=== PATIENT | female | born 1930 | race Caucasian/White ===

== ENCOUNTER 2017-02-12 09:43 | Inpatient (IN) | payer OTHER ==
[2017-02-12 12:19] VITALS: BMI 32.1
--- NOTE | 2017-02-12 14:16 | HP ---
CIWA Score - CIWA Score Nausea/Vomitin-Int. Nausea w/Dry Heave Muscle Tremors: 3 Anxiety: 4-Mod. Anxious/Guarded Agitation: 3 Paroxysmal Sweats: 2 Orientation: 0-Oriented Tacttile Disturbances: 3-Moderate Itch/Numb/Burn Auditory Disturbances: 0-None Visual Disturbances: 0-None Headache: 4-Moderately Severe CIWA-Ar Total Score: 23 Admission ROS BHS - HPI Chief Complaint: "I need to Detox." Pt. is here to Detox from Xanax. Allergies/Adverse Reactions: Allergies Allergy/AdvReac Type Severity Reaction Status Date / Time No Known Allergies Allergy Verified 02/12/17 12:56 History of Present Illness: Pt. is a 86 YO female here to detox from Xanax. This is pt.'s first Detox admission. Exam Limitations: No Limitations - Ebola screening Have you traveled outside of the country in the last 21 days: No Have you had contact with anyone from an Ebola affected area: No Have you been sick,other than usual withdrawal symptoms: No Do you have a fever: No - Review of Systems Constitutional: Chills, Diaphoresis, Loss of Appetite, Malaise, Night Sweats, Changes in sleep, Unintentional Wgt. Loss (Lost 5-10 lbs. over last 1 month.) EENT: reports: Blurred Vision, Other (Dry Mouth.) Respiratory: reports: No Symptoms reported Cardiac: reports: No Symptoms Reported GI: reports: Abdominal cramping : reports: No Symptoms Reported Musculoskeletal: reports: Joint Pain, Joint Stiffness Integumentary: reports: No Symptoms Reported Neuro: reports: Headache, Tremors Endocrine: reports: No Symptoms Reported Hematology: reports: No Symptoms Reported Psychiatric: reports: Judgement Intact, Mood/Affect Appropiate, Orientated x3, Agitated, Anxious, Depressed (Anxiety.) Other Systems: Reviewed and Negative Patient History - Patient Medical History Hx Anemia: No Hx Asthma: No Hx Chronic Obstructive Pulmonary Disease (COPD): No Hx Cancer: No Hx Cardiac Disorders: No Hx Congestive Heart Failure: No Hx Hypertension: Yes (Takes med.) Hx Hypercholesterolemia: Yes (No meds.) Hx Pacemaker: No HX Cerebrovascular Accident: No Hx Seizures: No Hx Dementia: No Hx Diabetes: No Hx Gastrointestinal Disorders: No Hx Liver Disease: No Hx Genitourinary Disorders: No Hx Sexually Transmitted Disorders: No Hx Renal Disease (ESRD): No (Possibly, Needs to Follow-up with Outside Medical Provider.) Hx Thyroid Disease: No Hx Human Immunodeficiency Virus (HIV): No Hx Hepatitis C: No Hx Depression: Yes (On meds.) Hx Suicide Attempt: No (PATIENT DENIES CURRENT SI / HI.) Hx Bipolar Disorder: No Hx Schizophrenia: No - Patient Surgical History Past Surgical History: No Hx Neurologic Surgery: No Hx Cataract Extraction: No Hx Cardiac Surgery: No Hx Lung Surgery: No Hx Breast Surgery: Yes (bIlateral breast sx at age 48) Hx Breast Biopsy: No Hx Abdominal Surgery: No Hx Appendectomy: No Hx Cholecystectomy: No Hx Genitourinary Surgery: No Hx Section: No Hx Orthopedic Surgery: No Anesthesia Reaction: No - PPD History Previous Implant?: Yes Documented Results: Negative w/o proof Implanted On Prior R Admission?: No PPD to be Administered?: Yes - Reproductive History Patient is a Female of Child Bearing Age (11 -55 yrs old): No (86 YO.) Patient : No - Smoking Cessation Smoking history: Never smoked Have you smoked in the past 12 months: No Cigars Per Day: 0 Hx Chewing Tobacco Use: No Initiated information on smoking cessation: No - Substance & Tx. History Hx Alcohol Use: No Hx Substance Use: Yes Substance Use Type: Tranquilizers Hx Substance Use Treatment: No - Substances Abused Xanax (prescribed) Route: Oral Frequency: Daily Amount used: 2 mg. po bid Age of first use: 76 Date of Last Use: 02/11/17 Ambien (prescribed) Route: Oral Frequency: Daily Amount used: 10 mg po HS Age of first use: 85 Date of Last Use: 02/11/17 Family Disease History - Family Disease History Family Disease History: CA: Daughter (Breast.) Admission Physical Exam BHS - Vital Signs Vital Signs: Vital Signs - 24 hr 02/12/17 12:16 Temperature 96 F L Pulse Rate 76 Respiratory 18 Rate Blood Pressure 185/95 - Physical General Appearance: Yes: Moderate Distress, Tremorous, Irritable, Anxious HEENTM: Yes: Hearing grossly Normal, Normocephalic, Normal Voice, NUZHAT, Pharynx Normal Respiratory: Yes: Chest Non-Tender, Lungs Clear, No Respiratory Distress Neck: Yes: No masses,lesions,Nodules, Supple, Trachea in good position Breast: Yes: Breast Exam Deferred Cardiology: Yes: Regular Rhythm, Regular Rate, S1, S2 Abdominal: Yes: Normal Bowel Sounds, Non Tender, Flat, Soft Genitourinary: Yes: Within Normal Limits Back: Yes: Decreased Range of Motion Musculoskeletal: Yes: Gait Steady, Joint Stiffness, Muscle Pain Extremities: Yes: Tremors Neurological: Yes: Fully Oriented, Alert, Normal Mood/Affect, Normal Response Integumentary: Yes: Normal Color, Warm Lymphatic: Yes: Within Normal Limits - Diagnostic (1) Sedative, hypnotic or anxiolytic dependence with withdrawal, uncomplicated Current Visit: Yes Status: Acute (2) Anxiety Current Visit: Yes Status: Chronic Cleared for Admission [facility] - Detox or Rehab [facility] Level of Care: Medically Managed Detox Regimen/Protocol: Valium [facility] Breath Alcohol Content Breath Alcohol Content: 0 Urine Pregancy Test - Result Urine Test Results: Negative- NO Line Present Urine Drug Screen - Results Drug Screen Negative: No Urine Drug Screen Results: BZO-Benzodiazepines
[2017-02-12] MEDS ORDERED: IBUPROFEN 400 MG TABLET (FP) PO PRN (14:48)
[2017-02-12] MEDS ORDERED: diphenhydrAMINE HCL 50 MG CAPSULE PO PRN (14:48)
[2017-02-12] MEDS ORDERED: guaiFENesin/D-METHORPHAN HB 10 ML UNIT-DOSE CUPS PO PRN (14:48)
[2017-02-12] MEDS ORDERED: hydrOXYzine PAMOATE 50 MG CAPSULE (FP) PO PRN (14:48)
[2017-02-12] MEDS ORDERED: MAGNESIUM HYDROX 2400MG/30ML ORAL SUSPENSION 30 ML CUP PO PRN (14:48)
[2017-02-12] MEDS ORDERED: MAG HYDROX/AL HYDROX/SIMETH 30 ML UNIT-DOSE CUP PO PRN (14:48)
[2017-02-12] MEDS ORDERED: MAGNESIUM CITRATE 300 ML BOTTLE PO PRN (14:48)
[2017-02-12] MEDS ORDERED: ACETAMINOPHEN 325 MG TABLET (FP) PO PRN (14:48)
[2017-02-12] MEDS ORDERED: P-EPHED 60MG/TRIPROLIDI 2.5MG TABLET PO PRN (14:48)
[2017-02-12] MEDS ORDERED: LOPERAMIDE HCL 2 MG CAPSULE PO PRN (14:48)
[2017-02-12] MEDS ORDERED: MENTHOL/PHENOL 1 EACH UD MM PRN (14:48)
[2017-02-12] MEDS ORDERED: diazePAM 5 MG TABLET PO ONE (15:24)
[2017-02-12] MEDS: diazePAM 5 MG TABLET PO PRN (18:51)
[2017-02-12] MEDS: diazePAM 5 MG TABLET PO SCH (22:10)
[2017-02-12] MEDS: THIAMINE HCL 100 MG TABLET (FP) PO SCH (22:11)
[2017-02-13] MEDS: diazePAM 5 MG TABLET PO SCH ×3 (06:22→22:47)
[2017-02-13] MEDS: PRENATAL VITAMINS W/ FOLIC ACID TABLET (FP) PO SCH (10:10)
[2017-02-13] MEDS: diazePAM 5 MG TABLET PO PRN (10:10)
[2017-02-13] MEDS: LOSARTAN POTASSIUM 50 MG TABLET (FP) PO SCH (10:11)
[2017-02-13 10:31] LABS: URINE APPEARANCE CLEAR; URINE BILIRUBIN NEGATIVE (NEGATIVE); URINE BLOOD NEGATIVE (NEGATIVE); URINE COLOR LTYELLOW; URINE GLUCOSE (UA) NEGATIVE (NEGATIVE); URINE KETONE NEGATIVE (NEGATIVE); URINE NITRITE NEGATIVE (NEGATIVE); URINE PROTEIN NEGATIVE (NEGATIVE); URINE UROBILINOGEN NEGATIVE E.U./dl (0.2-1.0)
[2017-02-13 10:32] LABS: URINE LEUK ESTERASE 3+ (NEGATIVE)
[2017-02-13 10:35] LABS: MCH 31.2 pg (25.7-33.7); MEAN CELL VOLUME 91.8 fl (80-96); MEAN PLT VOLUME 8.6 fl (7.5-11.1); PLATELET COUNT 311 K/MM3 (134-434); RDW 14.3 % (11.6-15.6)
[2017-02-13 10:47] LABS: URINE BACTERIA FEW /hpf (NONE SEEN); URINE RBC 1 /hpf (0-3); URINE WBC 10 /hpf (3-5)
[2017-02-13 11:07] LABS: ALBUMIN 4.2 g/dl (3.4-5.0); BILIRUBIN,TOTAL 0.7 mg/dL (0.2-1.0); CALCIUM 9.7 mg/dL (8.5-10.1); COCKROFT - GAULT 40.596; CREATININE 1.3 mg/dL (0.55-1.02)
--- NOTE | 2017-02-13 12:39 | PN ---
S CIWA - CIWA Score Nausea/Vomitin Muscle Tremors: 3 Anxiety: 3 Agitation: 3 Paroxysmal Sweats: 1-Minimal Palms Moist Orientation: 0-Oriented Tacttile Disturbances: 1-Very Mild Itch/Numbness Auditory Disturbances: 1-Very Mild Visual Disturbances: 1-Very Mild Sensitivity Headache: 2-Mild CIWA-Ar Total Score: 18 S Progress Note (SOAP) Subjective: ALERT,IRRITABLE,ANXIOUS,INTERRUPTED SLEEP,HEADACHE Objective: 02/13/17 12:37 Vital Signs Temperature 98.1 F 02/13/17 10:21 Pulse Rate 103 H 02/13/17 10:21 Respiratory Rate 18 02/13/17 10:21 Blood Pressure 150/92 02/13/17 10:21 O2 Sat by Pulse Oximetry (%) EKG NSR,NORMAL ECG Laboratory Last Values WBC 10.0 K/mm3 (4.0-10.0) 02/13/17 06:30 RBC 4.47 M/mm3 (3.60-5.2) 02/13/17 06:30 Hgb 14.0 GM/dL (10.7-15.3) 02/13/17 06:30 Hct 41.0 % (32.4-45.2) 02/13/17 06:30 MCV 91.8 fl (80-96) 02/13/17 06:30 MCHC 34.0 g/dl (32.0-36.0) 02/13/17 06:30 RDW 14.3 % (11.6-15.6) 02/13/17 06:30 Plt Count 311 K/MM3 (134-434) 02/13/17 06:30 MPV 8.6 fl (7.5-11.1) 02/13/17 06:30 Sodium 137 mmol/L (136-145) 02/13/17 06:30 Potassium 4.1 mmol/L (3.5-5.1) 02/13/17 06:30 Chloride 102 mmol/L (98-107) 02/13/17 06:30 Carbon Dioxide 23 mmol/L (21-32) 02/13/17 06:30 Anion Gap 12 (8-16) 02/13/17 06:30 BUN 17 mg/dL (7-18) 02/13/17 06:30 Creatinine 1.3 mg/dL (0.55-1.02) H 02/13/17 06:30 Creat Clearance w eGFR 39.02 (>60) 02/13/17 06:30 Random Glucose 104 mg/dL (74-106) 02/13/17 06:30 Calcium 9.7 mg/dL (8.5-10.1) 02/13/17 06:30 Total Bilirubin 0.7 mg/dL (0.2-1.0) 02/13/17 06:30 AST 26 U/L (15-37) 02/13/17 06:30 ALT 23 U/L (12-78) 02/13/17 06:30 Alkaline Phosphatase 111 U/L (45-117) 02/13/17 06:30 Total Protein 8.0 g/dl (6.4-8.2) 02/13/17 06:30 Albumin 4.2 g/dl (3.4-5.0) 02/13/17 06:30 Urine Color Ltyellow 02/13/17 09:00 Urine Appearance Clear 02/13/17 09:00 Urine pH 7.0 (5.0-8.0) 02/13/17 09:00 Ur Specific [place] 1.015 (1.001-1.035) 02/13/17 09:00 Urine Protein Negative (NEGATIVE) 02/13/17 09:00 Urine Glucose (UA) Negative (NEGATIVE) 02/13/17 09:00 Urine Ketones Negative (NEGATIVE) 02/13/17 09:00 Urine Blood Negative (NEGATIVE) 02/13/17 09:00 Urine Nitrite Negative (NEGATIVE) 02/13/17 09:00 Urine Bilirubin Negative (NEGATIVE) 02/13/17 09:00 Urine Urobilinogen Negative E.U./dl (0.2-1.0) 02/13/17 09:00 Ur Leukocyte Esterase 3+ (NEGATIVE) H 02/13/17 09:00 Urine RBC 1 /hpf (0-3) 02/13/17 09:00 Urine WBC 10 /hpf (3-5) 02/13/17 09:00 Ur Epithelial Cells Rare /hpf (FEW) 02/13/17 09:00 Urine Bacteria Few /hpf (NONE SEEN) 02/13/17 09:00 Assessment: 02/13/17 12:38 WITHDRAWAL SYMPTOM Plan: CONTINUE DETOX,REPEAT UA
--- NOTE | 2017-02-13 16:03 | CONSULT ---
[facility] Psychiatric Consult - Data Date of interview: 02/13/17 Admission source: [facility] Identifying data: Patient is approached for psychiatric interview.She refused.Staff is made aware.
[2017-02-13] MEDS: THIAMINE HCL 100 MG TABLET (FP) PO SCH (22:47)
[2017-02-14] MEDS: diazePAM 5 MG TABLET PO PRN ×4 (06:12→21:12)
[2017-02-14] MEDS: diazePAM 5 MG TABLET PO SCH ×2 (11:13→23:13)
[2017-02-14] MEDS: PRENATAL VITAMINS W/ FOLIC ACID TABLET (FP) PO SCH (11:13)
[2017-02-14] MEDS: LOSARTAN POTASSIUM 50 MG TABLET (FP) PO SCH (11:14)
--- NOTE | 2017-02-14 14:58 | PN ---
S CIWA - CIWA Score Nausea/Vomitin Muscle Tremors: 3 Anxiety: 3 Agitation: 2 Paroxysmal Sweats: 1-Minimal Palms Moist Orientation: 0-Oriented Tacttile Disturbances: 1-Very Mild Itch/Numbness Auditory Disturbances: 1-Very Mild Visual Disturbances: 1-Very Mild Sensitivity Headache: 2-Mild CIWA-Ar Total Score: 17 BHS Progress Note (SOAP) Subjective: ALERT,IRRITABLE,ANXIOUS,INTERRUPTED SLEEP,PAIN IN THE BODY Objective: 02/14/17 14:56 Vital Signs Temperature 98.1 F 02/14/17 14:21 Pulse Rate 81 02/14/17 14:21 Respiratory Rate 18 02/14/17 14:21 Blood Pressure 162/92 02/14/17 14:21 O2 Sat by Pulse Oximetry (%) Laboratory Last Values WBC 10.0 K/mm3 (4.0-10.0) 02/13/17 06:30 RBC 4.47 M/mm3 (3.60-5.2) 02/13/17 06:30 Hgb 14.0 GM/dL (10.7-15.3) 02/13/17 06:30 Hct 41.0 % (32.4-45.2) 02/13/17 06:30 MCV 91.8 fl (80-96) 02/13/17 06:30 MCHC 34.0 g/dl (32.0-36.0) 02/13/17 06:30 RDW 14.3 % (11.6-15.6) 02/13/17 06:30 Plt Count 311 K/MM3 (134-434) 02/13/17 06:30 MPV 8.6 fl (7.5-11.1) 02/13/17 06:30 Sodium 137 mmol/L (136-145) 02/13/17 06:30 Potassium 4.1 mmol/L (3.5-5.1) 02/13/17 06:30 Chloride 102 mmol/L (98-107) 02/13/17 06:30 Carbon Dioxide 23 mmol/L (21-32) 02/13/17 06:30 Anion Gap 12 (8-16) 02/13/17 06:30 BUN 17 mg/dL (7-18) 02/13/17 06:30 Creatinine 1.3 mg/dL (0.55-1.02) H 04/15/17 06:30 Creat Clearance w eGFR 39.02 (>60) 02/13/17 06:30 Random Glucose 104 mg/dL (74-106) 02/13/17 06:30 Calcium 9.7 mg/dL (8.5-10.1) 02/13/17 06:30 Total Bilirubin 0.7 mg/dL (0.2-1.0) 02/13/17 06:30 AST 26 U/L (15-37) 02/13/17 06:30 ALT 23 U/L (12-78) 02/13/17 06:30 Alkaline Phosphatase 111 U/L (45-117) 02/13/17 06:30 Total Protein 8.0 g/dl (6.4-8.2) 02/13/17 06:30 Albumin 4.2 g/dl (3.4-5.0) 02/13/17 06:30 Urine Color Ltyellow 02/13/17 09:00 Urine Appearance Clear 02/13/17 09:00 Urine pH 7.0 (5.0-8.0) 02/13/17 09:00 Ur Specific [place] 1.015 (1.001-1.035) 02/13/17 09:00 Urine Protein Negative (NEGATIVE) 02/13/17 09:00 Urine Glucose (UA) Negative (NEGATIVE) 02/13/17 09:00 Urine Ketones Negative (NEGATIVE) 02/13/17 09:00 Urine Blood Negative (NEGATIVE) 02/13/17 09:00 Urine Nitrite Negative (NEGATIVE) 02/13/17 09:00 Urine Bilirubin Negative (NEGATIVE) 02/13/17 09:00 Urine Urobilinogen Negative E.U./dl (0.2-1.0) 02/13/17 09:00 Ur Leukocyte Esterase 3+ (NEGATIVE) H 02/13/17 09:00 Urine RBC 1 /hpf (0-3) 02/13/17 09:00 Urine WBC 10 /hpf (3-5) 02/13/17 09:00 Ur Epithelial Cells Rare /hpf (FEW) 02/13/17 09:00 Urine Bacteria Few /hpf (NONE SEEN) 02/13/17 09:00 RPR Titer Nonreactive (NONREACTIVE) 02/13/17 06:30 Assessment: 02/14/17 14:57 WITHDRAWAL SYMPTOM Plan: CONTINUE DETOX
[2017-02-14 17:43] LABS: URINE APPEARANCE CLEAR; URINE BILIRUBIN NEGATIVE (NEGATIVE); URINE BLOOD NEGATIVE (NEGATIVE); URINE COLOR LTYELLOW; URINE GLUCOSE (UA) NEGATIVE (NEGATIVE); URINE KETONE NEGATIVE (NEGATIVE); URINE LEUK ESTERASE TRACE (NEGATIVE); URINE NITRITE NEGATIVE (NEGATIVE); URINE PROTEIN NEGATIVE (NEGATIVE); URINE UROBILINOGEN NEGATIVE E.U./dl (0.2-1.0)
[2017-02-14 17:47] LABS: URINE RBC <1 /hpf (0-3); URINE WBC 3 /hpf (3-5)
[2017-02-14] MEDS: hydrOXYzine PAMOATE 50 MG CAPSULE (FP) PO SCH (23:13)
[2017-02-14] MEDS: THIAMINE HCL 100 MG TABLET (FP) PO SCH (23:13)
[2017-02-15] MEDS: diazePAM 5 MG TABLET PO PRN ×3 (02:57→12:37)
--- NOTE | 2017-02-15 08:48 | EKG ---
Test Reason : Blood Pressure : / mmHG Vent. Rate : 076 BPM Atrial Rate : 076 BPM P-R Int : 142 ms QRS Dur : 098 ms QT Int : 406 ms P-R-T Axes : 072 013 051 degrees QTc Int : 456 ms NORMAL SINUS RHYTHM NORMAL ECG NO PREVIOUS ECGS AVAILABLE Confirmed by ALHAJI GARAY MD ([id number]) on 02/15/2017 8:47:47 AM Referred By: Confirmed By:ALHAJI GARAY MD
[2017-02-15] MEDS: diazePAM 5 MG TABLET PO SCH ×2 (10:53→22:49)
[2017-02-15] MEDS: LOSARTAN POTASSIUM 50 MG TABLET (FP) PO SCH (10:53)
[2017-02-15] MEDS: PRENATAL VITAMINS W/ FOLIC ACID TABLET (FP) PO SCH (10:53)
--- NOTE | 2017-02-15 11:37 | PN ---
BHS Progress Note (SOAP) Subjective: interrupted sleep, sweats , nausea, diarrhea, not eatting , unable to tolerate ensure Objective: 02/15/17 11:34 Vital Signs Temperature 98.2 F 02/15/17 06:00 Pulse Rate 72 02/15/17 06:00 Respiratory Rate 18 02/15/17 06:00 Blood Pressure 131/71 02/15/17 06:00 O2 Sat by Pulse Oximetry (%) Vital Signs Temperature 98.2 F 02/15/17 06:00 Pulse Rate 72 02/15/17 06:00 Respiratory Rate 18 02/15/17 06:00 Blood Pressure 131/71 02/15/17 06:00 O2 Sat by Pulse Oximetry (%) Laboratory Tests 02/13/17 02/13/17 02/13/17 06:30 06:30 06:30 WBC 10.0 RBC 4.47 Hgb 14.0 Hct 41.0 MCV 91.8 MCHC 34.0 RDW 14.3 Plt Count 311 MPV 8.6 Sodium 137 Potassium 4.1 Chloride 102 Carbon Dioxide 23 Anion Gap 12 BUN 17 Creatinine 1.3 H Creat Clearance w eGFR 39.02 Random Glucose 104 Calcium 9.7 Total Bilirubin 0.7 AST 26 ALT 23 Alkaline Phosphatase 111 Total Protein 8.0 Albumin 4.2 Urine Color Urine Appearance Urine pH Ur Specific [place] Urine Protein Urine Glucose (UA) Urine Ketones Urine Blood Urine Nitrite Urine Bilirubin Urine Urobilinogen Ur Leukocyte Esterase Urine RBC Urine WBC Ur Epithelial Cells Urine Bacteria RPR Titer Nonreactive 02/13/17 02/14/17 09:00 17:29 WBC RBC Hgb Hct MCV MCHC RDW Plt Count MPV Sodium Potassium Chloride Carbon Dioxide Anion Gap BUN Creatinine Creat Clearance w eGFR Random Glucose Calcium Total Bilirubin AST ALT Alkaline Phosphatase Total Protein Albumin Urine Color Ltyellow Ltyellow Urine Appearance Clear Clear Urine pH 7.0 6.0 Ur Specific [place] 1.015 1.010 Urine Protein Negative Negative Urine Glucose (UA) Negative Negative Urine Ketones Negative Negative Urine Blood Negative Negative Urine Nitrite Negative Negative Urine Bilirubin Negative Negative Urine Urobilinogen Negative Negative Ur Leukocyte Esterase 3+ H Trace H D Urine RBC 1 <1 Urine WBC 10 3 Ur Epithelial Cells Rare Rare Urine Bacteria Few RPR Titer pt aox3 in nad ambualting Assessment: 02/15/17 11:36 withdrawal sx's Plan: cont detox increase fluids periactin 4mg bid d/c am
[2017-02-15] MEDS ORDERED: CYPROHEPTADINE HCL 4 MG TABLET PO ONE (13:30)
[2017-02-15] MEDS: CYPROHEPTADINE HCL 4 MG TABLET PO SCH (16:42)
[2017-02-15] MEDS: THIAMINE HCL 100 MG TABLET (FP) PO SCH (22:49)
[2017-02-15] MEDS: hydrOXYzine PAMOATE 50 MG CAPSULE (FP) PO SCH (22:49)
[2017-02-16 06:33] VITALS: BP 128/60; PULSE 78; TEMP 97
[2017-02-16] MEDS: CYPROHEPTADINE HCL 4 MG TABLET PO SCH (07:54)
[2017-02-16] MEDS: LOSARTAN POTASSIUM 50 MG TABLET (FP) PO SCH (09:05)
[2017-02-16] MEDS: PRENATAL VITAMINS W/ FOLIC ACID TABLET (FP) PO SCH (09:05)
--- NOTE | 2017-02-16 09:21 | DS ---
[facility] Detox Discharge Summary Admission Date: 02/12/17 Discharge Date: 02/16/17 - History Present History: Sedative Dependence - Physical Exam Results Vital Signs: Vital Signs Temperature 97 F L 02/16/17 06:33 Pulse Rate 78 02/16/17 06:33 Respiratory Rate 16 02/16/17 06:33 Blood Pressure 128/60 02/16/17 06:33 O2 Sat by Pulse Oximetry (%) - Treatment Hospital Course: Detox Protocol Followed, Detoxed Safely, Responded well, Discharged Condition Good - Medication Discharge Medications: Ambulatory Orders Losartan Potassium [Cozaar] 100 mg PO DAILY 02/12/17 Zolpidem Tartrate [Ambien] 10 mg PO HS 02/12/17 - Diagnosis (1) Sedative, hypnotic or anxiolytic dependence with withdrawal, uncomplicated Current Visit: Yes Status: Chronic (2) Anxiety Current Visit: Yes Status: Chronic - AMA Did Patient Leave Against Medical Advice: No
[2017-02-16] MEDS ORDERED: diazePAM 5 MG TABLET PO SCH (10:00)
== END 2017-02-16 09:19 | disposition home or self-care (01) | DRG 897 ==
LOC: YASAS 09:43 → Y6N 14:06
PROVIDERS: ADMIT Internal Medicine; ATTEND Internal Medicine
PROC: HZ2ZZZZ Detoxification Services for Substance Abuse Treatment (ICD-10-PCS; principal; 2017-02-12)
DX: F13.230 Sedative, hypnotic or anxiolytic dependence with withdrawal, uncomplicated (principal); F41.9 Anxiety disorder, unspecified; I10 Essential (primary) hypertension; E78.00 Pure hypercholesterolemia, unspecified
CPT/HCPCS: 36415; 80053; 81003; 81015; 85027; 86593; 93005; 93010